=== PATIENT | female | born 2000 | race African-American/Black ===

== ENCOUNTER 2018-05-06 11:47 | Emergency (ER) | payer MEDICARE ==
[~2018-05-06] VITALS: Ht 165.1 cm; Wt 60.5 kg
[2018-05-06 12:10] VITALS: Ht 165.1 cm; Wt 60.5 kg
[2018-05-06 13:28] LABS: HCG URINE POSITIVE (NEGATIVE)
[2018-05-06 13:36] LABS: APPEARANCE SLT CLOUDY (CLEAR); BILIRUBIN NEGATIVE (NEGATIVE); COLOR YELLOW (YELLOW); GLUCOSE NEGATIVE (NEGATIVE); KETONE NEGATIVE (NEGATIVE); NITRITE NEGATIVE (NEGATIVE); PROTEIN NEGATIVE (NEGATIVE); SPECIFIC GRAVITY 1.005 (1.005-1.020); UROBILINOGEN NORMAL (NORMAL)
[2018-05-06] MEDS ORDERED: ZOFRAN ODT4 MG/UDTAB PO (13:54)
[2018-05-06 14:29] VITALS: BP 116/57
== END 2018-05-06 14:29 | disposition home or self-care (01) ==
LOC: D.ER 11:47
PROVIDERS: Family Medicine
DX: N91.2 Amenorrhea, unspecified (principal)

== ENCOUNTER → 2018-12-08 00:41 | Outpatient (CLI) | payer MEDICARE ==
[2018-05-06 12:10] VITALS: BMI 22.1
[~2018-12-08 00:41] MED LIST: PRENAVITE1 TAB PO; ZOFRAN ODT4 MG/UDTAB PO
[2018-12-26 09:26] VITALS: BMI 24.7
== END | disposition home or self-care (01) ==
LOC: D.LDO 00:41
DX: O26.899 Other specified pregnancy related conditions, unspecified trimester (principal); Z3A.00 Weeks of gestation of pregnancy not specified

== ENCOUNTER 2018-12-14 22:27 | Outpatient (CLI) | payer MEDICARE ==
[2018-05-06 12:10] VITALS: BMI 22.1
[~2018-12-14 22:27] MED LIST changes: -PRENAVITE1 TAB PO
[2018-12-14 23:01] LABS: COLOR YELLOW (YELLOW)
[2018-12-14 23:02] LABS: APPEARANCE CLEAR (CLEAR); BILIRUBIN NEGATIVE (NEGATIVE); GLUCOSE NEGATIVE (NEGATIVE); KETONE NEGATIVE (NEGATIVE); NITRITE NEGATIVE (NEGATIVE); PROTEIN NEGATIVE (NEGATIVE); UROBILINOGEN NORMAL (NORMAL)
[2018-12-26 09:26] VITALS: BMI 24.7
== END 2018-12-14 23:38 | disposition home or self-care (01) ==
LOC: D.LDO 22:27
PROVIDERS: Obstetrics & Gynecology
DX: O26.893 Other specified pregnancy related conditions, third trimester (principal); Z3A.38 38 weeks gestation of pregnancy; M54.5 Low back pain; R10.2 Pelvic and perineal pain

== ENCOUNTER 2018-12-26 06:09 | Inpatient (IN) | payer MEDICARE ==
[~2018-12-26] VITALS: Ht 165.1 cm; Wt 67.6 kg
[2018-12-26] MEDS ORDERED: PRENAVITE1 TAB PO (06:47)
[2018-12-26 07:20] LABS: HEMATOCRIT 37.2 % (36.0-48.0); HEMOGLOBIN 12.8 g/dL (12-16); MCH 29.2 pg (26.0-34.0); MCHC 34.4 g/dL (31.0-37.0); MCV 84.7 fL (80.0-100.0); MEAN PLATELET VOLUME 12.4 fL (7.4-10.4); RBC 4.39 10x6/uL (4.00-5.40); RDW 12.9 % (11.5-14.5)
[2018-12-26 08:29] VITALS: BP 123/65; BMI 24.8
[2018-12-26 08:47] LABS: UDS - AMPHET NEGATIVE QUAL (NEGATIVE); UDS - BARB NEGATIVE QUAL (NEGATIVE); UDS - BENZO NEGATIVE QUAL (NEGATIVE); UDS - COCAINE NEGATIVE QUAL (NEGATIVE); UDS - OPIATE NEGATIVE QUAL (NEGATIVE); UDS - PCP NEGATIVE QUAL (NEGATIVE); UDS - THC NEGATIVE QUAL (NEGATIVE)
[2018-12-26 09:26] VITALS: Ht 165.1 cm; Wt 67.6 kg
[2018-12-26 19:17] VITALS: BP 131/76
--- NOTE | 2018-12-26 19:17 | NUR ---
SHIFT ASSESSMENT COMPLETED PER FLOWSHEET. PLAN OF CARE REVIEWED WITH PT AND FAMILY, VERBALIZE UNDERSTANDING AND DENY QUESTIONS AT THIS TIME. REINFORCED NOT GETTING UP WITHOUT ASSIST, VERBALIZES UNDERSTANDING. BED IN LOW POSITION WITH UPPER SIDE RAILS RAISED X2. CL AND PHONE WITHIN REACH. WILL CONTINUE TO MONITOR AND ASSIST PRN.
--- NOTE | 2018-12-26 22:20 | NUR ---
PT TRANSFERRED TO ROOM 1276-A VIA AND ASSISTED INTO BED AFTER VOID. POSITONED TO COMFORT, SIDE RAILS UP X2, BED IN LOW POSITION, BED BRAKES LOCKED, INFANT RESTING ROLLING CRIB ADJACENT TO BED, PERSONAL BELONGINGS PLACED WITHIN EASY REACH INCLUDING CALL LIGHT. LEMON BURNS PAIUTE SODA PROVIDED UPON REQUEST, ROOM ORIENTATION COMPLETED. PT STATES UNDERSTANDING OF ALL INSTRUCTIONS PROVIDED.
--- NOTE | 2018-12-27 00:04 | NUR ---
ROUNDS MADE. PT RESTING ON LEFT SIDE WITH EYES CLOSED. RESPIRATIONS REGULAR AND UNLABORED, NO S/S OF DISTRESS NOTED. INFANT RESTING IN OPEN CRIB AT BEDSIDE. S/O RESTING ON COUCH. BED IN LOW POSITION WITH UPPER SIDE RAILS RAISED X2. CALL LIGHT AND PHONE WITHIN REACH. WILL CONTINUE TO MONITOR AND ASSIST PRN.
--- NOTE | 2018-12-27 01:10 | NUR ---
ROUNDS MADE. PT RESTING WITH EYES CLOSED IN SEMI-FOWLWERS POSITION. RESPIRATIONS REGULAR AND UNLABORED, NO S/S OF DISTRESS NOTED. RESTING IN OPEN CRIB AT BEDSIDE. S/O RESTING ON COUCH. BED IN LOW POSITION WITH UPPER SIDE RAILS RAISED X2. CALL LIGHT AND PHONE WITHIN REACH. WILL CONTINUE TO MONITOR AND ASSIST PRN.
--- NOTE | 2018-12-27 02:40 | NUR ---
PATIENT SITTING UP IN BED FEEDING INFANT. DENIES ANY NEEDS OR CONCERNS AT THIS TIME. NO SIGNS OF DISTRESS NOTED.
--- NOTE | 2018-12-27 03:12 | NUR ---
ROUNDS MADE. UP TO VOID. SMALL AMT RUBRA LOCHIA NOTED TO PERIPAD, NO CLOTS NOTED. BACK TO BED, FUNDUS FIRM, MIDLINE AND U2. PERICARE DONE PER PT. MILD SWELLING NOTED TO BILATERAL LIABIA, ICE PACK PROVIDED PER REQUEST. TO NBN PER PT REQUEST. STATES THAT SHE WILL CALL FOR INFANT WHEN SHE WANTS BROUGHT BACK TO ROOM. BED IN LOW POSITION WITH UPPER SIDE RAILS RAISED X2. CALL LIGHT AND PHONE WITHIN REACH. WILL CONTINUE TO MONITOR AND ASSIST PRN.
--- NOTE | 2018-12-27 04:38 | NUR ---
RESTING WITH EYES CLOSED ON LEFT SIDE. RESPIRATIONS REGULAR AND UNLABORED WITH NO S/S OF DISTRESS NOTED. BED IN LOW POSITION WITH UPPER SIDE RAILS RAISED X2. CALL LIGHT AND PHONE WITHIN REACH. WILL CONTINUE TO MONITOR AND ASSIST PRN.
--- NOTE | 2018-12-27 06:28 | NUR ---
PATIENT LYING IN BED WITH EYES CLOSED. EASILY AROUSED. NO SIGNS OF DISTRESS NOTED. DENIES ANY NEEDS OR CONCERNS AT THIS TIME.
--- NOTE | 2018-12-27 08:10 | NUR ---
RCVD PT FROM PM SHIFT. PT RESTING ON LT SIDE WITH EYES CLOSED, RESP EVEN & UNLABORED. PT AWAKENS UPON RN ENTERING ROOM. PT IS AAOX3. HR-RRR, PPP, BREATH SOUNDS CLEAR & UNLABORED X2, BOWEL SOUNDS ACTIVE X4. FUNDUS FIRM, ML, 2/U. PT REPORTS SHE HAS NOT VOIDED SINCE 2 AM. ADV PT TO ATTEMPT TO VOIDING Q2H TODAY. PT IS AGREEABLE AND VERBALIZES UNDERSTANDING. SL NOTED TO RT HAND C/D/I WITHOUT ERYTHEMA OR EDEMA NOTE TO SITE. PT REPORTS SMALL LOCHIA RUBRA WHEN VOIDING AND ONLY CHANGING PAD X1 THROUGHOUT THE NIGHT. PT UP TO VOID. DENIES NEEDS AT THIS TIME. BED LOW, WHEELS LOCKED, SIDE RAILS UP X2, CALL LIGHT AND PHONE WITHIN REACH.
--- NOTE | 2018-12-27 09:45 | NUR ---
ICE WATER PROVIDED PER PT REQUEST. NO FURTHER NEEDS VOICED AT THIS TIME.
--- NOTE | 2018-12-27 10:15 | NUR ---
PT DESIRES TO SHOWER. SL TO RT HAND COVERED TO STAY DRY. CHUCKS AND PADS CHANGED ON BED. CLEAN GOWN AND TOWELS PROVIDED. NO FURTHER NEEDS VOICED.
[2018-12-27 10:41] VITALS: BP 106/60
--- NOTE | 2018-12-27 11:18 | NUR ---
PT OUT OF SHOWER AND BACK TO BED. DENIES PAIN OR NEEDS.
--- NOTE | 2018-12-27 12:42 | NUR ---
PT AMB IN HALLS. STEADY GAIT NOTED. PT DENIES PAIN OR NEEDS.
[2018-12-27 13:17] LABS: BASOPHILS 0.2 % (0-2); EOSINOPHILS 0.5 % (0-7); HEMATOCRIT 34.8 % (36.0-48.0); HEMOGLOBIN 11.8 g/dL (12-16); IMMATURE GRANULOCYTES 0.5 % (0-5); LYMPHOCYTES 11.6 % (15-50); MCH 28.7 pg (26.0-34.0); MCHC 33.9 g/dL (31.0-37.0); MCV 84.7 fL (80.0-100.0); MEAN PLATELET VOLUME 12.2 fL (7.4-10.4); MONOCYTES 8.3 % (2-11); NEUTROPHILS 78.9 % (40-80); PLATELET COUNT 196 10x3/uL (130-400); RBC 4.11 10x6/uL (4.00-5.40); RDW 13.2 % (11.5-14.5)
--- NOTE | 2018-12-27 15:02 | NUR ---
ROUNDS MADE. PT SITTING UP IN BED VISITING WITH GUESTS IN ROOM. DENIES PAIN OR NEEDS AT THIS TIME.
--- NOTE | 2018-12-27 17:48 | NUR ---
ROUNDS MADE. PT SITTING UP IN BED WITH 100% OF MEAL TRAY CONSUMED. DENIES PAIN OR NEEDS.
--- NOTE | 2018-12-27 19:23 | NUR ---
BONDING WITH INFANT AND CONVERSING WITH VISITORS. DENIES NEEDS AT THIS TIME. BED IN LOW POSITION WITH UPPER SIDE RAILS RAISED X2. CALL LIGHT AND PHONE WITHIN REACH. WILL CONTINUE TO MONITOR AND ASSIST PRN.
[2018-12-27 19:53] VITALS: BP 128/76
--- NOTE | 2018-12-27 19:53 | NUR ---
SHIFT ASSESSMENT COMPLETED. DENIES PAIN. VSS. RESPIRATIONS REGULAR AND UNLABORED, NO S/S OF DISTRESS NOTED. BREATH SOUNDS CLEAR AND EQUAL BILATERALLY. BOWEL SOUNDS PRESENT AND ACTIVE X4 QUADRANTS. PT REPORTS THAT SHE IS VOIDING WITHOUT DIFFICULT AND PASSING FLATUS. REPORTS THAT SHE IS USING PERIBOTTLE FOR PERICARE FOLLOWING EACH VOID, DENIES QUESTIONS ON PERICARE. DENIES PASSING CLOTS. FUNDUS FIRM, MIDLINE AND U3 WITH SMALL RUBRA LOCHIA, NO CLOTS NOTED. DENIES NEEDS. EDUCATED ON S/S OF INFECTION TO REPORT, VERBALIZES UNDERSTANDING. NO PERINEAL SWELLING NOTED. BED IN LOW POSITION WITH UPPER SIDE RAILS RAISED X2. CALL LIGHT AND PHONE WITHIN REACH. WILL CONTINUE TO MONITOR AND ASSIST PRN.
--- NOTE | 2018-12-27 20:33 | NUR ---
ROUNDS MADE. IN HIGH FOWLERS POSITION BOTTLE FEEDING . ICE WATER REQUESTED AND PROVIDED. BED IN LOW POSITION WITH UPPER SIDE RAILS RAISED X2. CALL LIGHT AND PHONE WITHIN REACH. WILL CONTINUE TO MONITOR AND ASSIST PRN.
--- NOTE | 2018-12-27 22:18 | NUR ---
C/O ABD CRAMPING 03/07, REQUESTING MED FOR PAIN. NO ORDERS NOTED, DR. EPPS PAGED WITH IMMEDIATE CALLBACK. ORDERS REC'D.
--- NOTE | 2018-12-27 22:24 | NUR ---
DISCUSSED ORDERS WITH PT, REQUESTS MOTRIN. GIVEN PER ORDER. PT EDUCATED ON MEDICATION, VERBALIZES UNDERSTANDING AND DENIES QUESTIONS. BED IN LOW POSITION WITH UPPER SIDE RAILS RAISED X2. CALL LIGHT AND PHONE WITHIN REACH.
--- NOTE | 2018-12-27 23:06 | NUR ---
PAIN REASSESSMENT 01/05 ABD CRAMPING. DENIES NEED FOR ADDITIONAL INTERVENTION. DENIES NEEDS. CONVERSING WITH VISITORS AND HOLDING INFANT. BED IN LOW POSITION WITH UPPER SIDE RAILS RAISED X2. CALL LIGHT AND PHONE WITHIN REACH. WILL CONTINUE TO MONITOR AND ASSIST PRN.
--- NOTE | 2018-12-28 01:02 | NUR ---
LAYING ON RIGHT SIDE RESTING WITH EYES CLOSED. RESPIRATIONS REGULAR AND UNLABORED, NO S/S OF DISTRESS NOTED. BED IN LOW POSITION WITH UPPER SIDE RAILS RAISED X2. CALL LIGHT AND PHONE WITHIN REACH. WILL CONTINUE TO MONITOR AND ASSIST PRN.
--- NOTE | 2018-12-28 03:22 | NUR ---
INFANT BROUGHT TO MOM FOR FEEDING. DENIES NEEDS AT THIS TIME. BED IN LOW POSITION WITH UPPER SIDE RAILS RAISED X2. CALL LIGHT AND PHONE WITHIN REACH. WILL CONTINUE MONITOR AND ASSIST PRN.
--- NOTE | 2018-12-28 03:52 | NUR ---
CALLS VIA CALL LIGHT. RN TO BEDSIDE, STATES THAT IS DONE EATING AND REQUESTS BE TAKEN BACK TO NBN. ICE WATER PROVIDED. DENIES ADDITIONAL NEEDS AND PAIN AT THIS TIME. TO NBN. BED IN LOW POSITION WITH UPPER SIDE RAILS RAISED X2. CALL LIGHT AND PHONE WITHIN REACH.
--- NOTE | 2018-12-28 06:16 | NUR ---
ROUNDS MADE. BOTTLE FEEDING . INSTRUCTED PT ON METHODS TO WAKE UP GIVEN WITH UNDERSTANDING DEMONSTRATED. DENIES ADDITIONAL NEEDS AT THIS TIME. BED IN LOW POSITION WITH UPPER SIDE RAILS RAISED X2. CALL LIGHT AND PHONE WITHIN REACH. WILL CONTINUE TO MONITOR AND ASSIST PRN.
[2018-12-28 07:24] LABS: RAPID PLASMA REAGIN Non Reactive (Non Reactive)
--- NOTE | 2018-12-28 08:07 | NUR ---
THIS RN TO BEDSIDE FOR SHIFT ASSESMENT. PT CURRENTLY LYING TO LEFT SIDE RESTING. OPENS EYES SPONTANEOUSLY WITH VERBAL STIMULUS. PAIN AND NEEDS ASSESSED. PT RATES ABD CRAMPING 5/10. MOTRIN OFFERED,ACCEPTED AND ADMINISTERED PER ORDERS. SEE EMAR. SEE FLOWSHEET FOR SHIFT ASSESSMENT. DISCHARGE TEACHING BEGUN. FRESH ICE WATER IN [facility] PROVIDED. INFANT PLACED IN PT'S ARMS PER REQUEST. BED LOW, SIDE RAILS UP X 2. CALL LIGHT AND PHONE AT PT'S SIDE. PT DENIES FURTHER NEEDS AT THIS TIME. SIG OTHER SLEEPING ON SOFA.
[2018-12-28 08:09] VITALS: BP 113/55
--- NOTE | 2018-12-28 09:30 | NUR ---
ROUNDS MADE. PT SITTING UP IN BED TENDING TO . PAIN AND NEEDS ASSESSED. PT DENIES PAIN OR NEEDS AT THIS TIME. BREAKFAST TRAY REMOVED. PAIN REASSESSED A 0/10.
--- NOTE | 2018-12-28 10:40 | NUR ---
THIS RN TO BEDSIDE FOR ROUNDING. PT CURRENTLY SITTING UP IN BED HOLDING . PT DENIES PAIN OR NEEDS AT PRESENT OTHER THAN TOWELS FOR SHOWERING AND INFANT TO BE TRANSPORTED TO NURSERY WHILE SHE SHOWERS. TOWELS/RAGS PROVIDED. INFANT TRANSPORTED VIA CRIB TO N.
--- NOTE | 2018-12-28 11:10 | NUR ---
PT RINGS CALL LIGHT TO REPORT SHE IS OUT OF THE SHOWER AND DESIRES HER INFANT TO RETURN TO ROOM. NBN NURSE NOTIFIED. THIS RN TO BEDSIDE. BED LINENS CHANGED AND ROOM STRAIGHTENED. PT DENIES PAIN OR NEEDS AT THIS TIME. BED LOW, SIDE RAILS UP X2. CALL LIGHT AND PHONE AT BEDSIDE. PT SITTING UP IN BED W/INFANT IN ARMS WHEN THIS RN LEAVES THE ROOM.
--- NOTE | 2018-12-28 11:30 | NUR ---
TDAP INFO SHEET PROVIDED.
--- NOTE | 2018-12-28 11:50 | NUR ---
THIS RN TO BEDSIDE TO GIVE DISCHARGE INSTRUCTIONS TO INCLUDE PP HEMMORHAGE,PP DEPRESSION AND PP OB EMERGENCIES, PAIN MEDICATION AND FOLLOW UP APPT. PT VERBALIZES UNDERSTANDING, DENIES QUESTIONS AT THIS TIME. DISCHARGE PAPERS SIGNED & COPY PROVIDED TO PATIENT. PRESCRIPTIONS FOR NORCO 5/325MG AND MOTRIN PROVIDED (COPY OF SCRIPT PLACED ON CHART).TDAP GIVEN TO LEFT DELTOID. SEE EMAR. AWAITING COMPLETION OF DISCHARGE. PT DENIES NEEDS AT THIS TIME. DENIES PAIN.
--- NOTE | 2018-12-28 12:54 | NUR ---
DR HUI TO ROOM TO SEE PT.
--- NOTE | 2018-12-28 13:30 | NUR ---
ROUNDS MADE. PT SITTING UP IN BED. NBN NURSE AT BEDSIDE PROVIDING DISCHARGE TEACHING. PT DENIES PAIN OR NEEDS AT THIS TIME.
--- NOTE | 2018-12-28 13:45 | NUR ---
PT DISCHARGED HOME. TRANSPORTED VIA W/C OFF UNIT IN STABLE CONDITION PER D PEEWEE MCDANIEL
--- NOTE | 2018-12-30 13:48 | MORECARE ---
CASE MANAGEMENT DISCHARGE SUMMARY PATIENT: JUAN MIGUEL ZHU UNIT: [id number] ADM DATE: 12/26/18 AGE: 18 : [birth year] SEX: F ROOM/BED: D[facility] AUTHOR: MARYLIN JEWELL PHYSICIAN: REFERRING PHYSICIAN: MEGAN EPPS MD DATE OF SERVICE: 12/30/18 Discharge Plan Patient Name: JUAN MIGUEL ZHU Facility: [facility]:[place] : 2000 Planned Disposition: Home Anticipated Discharge Date: 12/28/18 Discharge Date: 12/28/2018 Expected LOS: 2 Initial Reviewer: [email or web address] Initial Review Date: 12/26/2018 Generated: 12/30/18 2:48 pm Patient Name: JUAN MIGUEL ZHU Page [id number] at 1348 All edits/amendments must be made on the electronic document DICTATION DATE: 12/30/18 1348 BELL SPINNER: [email or web address] 12/30/18 1348 RPT#: [id number] DC DATE:12/28/18 STATUS: DIS IN [facility] [address] [place] [address] END OF REPORT
== END 2018-12-28 13:45 | disposition home or self-care (01) | DRG 807 ==
LOC: D.LD 06:09
PROVIDERS: ADMIT Obstetrics & Gynecology; ATTEND Obstetrics & Gynecology
PROC: 3E033VJ Introduction of Other Hormone into Peripheral Vein, Percutaneous Approach (ICD-10-PCS; principal; 2018-12-26)
PROC: 10E0XZZ Delivery of Products of Conception, External Approach (ICD-10-PCS; 2018-12-26)
PROC: 10907ZC Drainage of Amniotic Fluid, Therapeutic from Products of Conception, Via Natural or Artificial Opening (ICD-10-PCS; 2018-12-26)
PROC: 0HQ9XZZ Repair Perineum Skin, External Approach (ICD-10-PCS; 2018-12-26)
DX: O99.324 Drug use complicating childbirth (principal); Z37.0 Single live birth; F12.90 Cannabis use, unspecified, uncomplicated; Z3A.39 39 weeks gestation of pregnancy; O70.0 First degree perineal laceration during delivery